=== PATIENT | male | born 1995 | race Caucasian/White ===

== ENCOUNTER 2017-07-28 16:11 | Emergency (ER) | payer BC ==
[~2017-07-28] VITALS: Ht 188 cm; Wt 127.3 kg
[~2017-07-28 16:11] MED LIST: ZYRTEC
[2017-07-28 16:27] VITALS: BP 160/87; PULSE 80; TEMP 98.1
[2017-07-28] MEDS ORDERED: FLEXERIL 1010 MG/TAB PO (18:41)
== END 2017-07-28 18:49 | disposition home or self-care (01) ==
LOC: COL.ER 16:11
DX: S20.211A Contusion of right front wall of thorax, initial encounter (principal); G43.909 Migraine, unspecified, not intractable, without status migrainosus; V80.010A Animal-rider injured by fall from or being thrown from horse in noncollision accident, initial encounter
CPT/HCPCS: J2360

== ENCOUNTER 2017-12-02 15:31 | Emergency (ER) | payer BC ==
[~2017-12-02] VITALS: Ht 190.5 cm; Wt 127.3 kg
[~2017-12-02 15:31] MED LIST changes: +FLEXERIL 1010 MG/TAB PO
[2017-12-02 15:37] VITALS: BP 128/81; TEMP 98
[2017-12-02] MEDS ORDERED: BACTRIM DS 8001 TAB PO (16:25)
[2017-12-02 16:37] VITALS: PULSE 98
== END 2017-12-02 16:38 | disposition home or self-care (01) ==
LOC: COL.ER 15:31
DX: S01.412A Laceration without foreign body of left cheek and temporomandibular area, initial encounter (principal); F17.290 Nicotine dependence, other tobacco product, uncomplicated; V80.010A Animal-rider injured by fall from or being thrown from horse in noncollision accident, initial encounter

== ENCOUNTER 2018-03-20 15:04 | Emergency (ER) | payer BC ==
[~2018-03-20] VITALS: Ht 190.5 cm; Wt 124.8 kg
[~2018-03-20 15:04] MED LIST changes: +BACTRIM DS 8001 TAB PO
[2018-03-20 15:12] VITALS: BP 112/81; TEMP 97.9
[2018-03-20] MEDS ORDERED: NORCO 325 MG-51 TAB PO (16:21)
[2018-03-20] MEDS ORDERED: FLEXERIL 1010 MG/TAB PO (16:27)
[2018-03-20 17:01] VITALS: PULSE 80
== END 2018-03-20 17:02 | disposition home or self-care (01) ==
LOC: COL.ER 15:04
DX: S39.012A Strain of muscle, fascia and tendon of lower back, initial encounter (principal); V80.010A Animal-rider injured by fall from or being thrown from horse in noncollision accident, initial encounter

== ENCOUNTER 2019-08-14 14:45 | Emergency (ER) | payer BC ==
[~2019-08-14] VITALS: Ht 190.5 cm; Wt 134.1 kg
[~2019-08-14 14:45] MED LIST changes: +NORCO 325 MG-51 TAB PO
[2019-08-14 15:07] VITALS: TEMP 98.8
[2019-08-14] MEDS ORDERED: SUDAFED30 MG PO (15:38)
[2019-08-14] MEDS ORDERED: DAY TIME 325 MG1 SGL (15:39)
[2019-08-14] MEDS ORDERED: CEPHALEXIN500 M1 PO (16:16)
[2019-08-14 16:27] VITALS: BP 143/95; PULSE 89
== END 2019-08-14 16:31 | disposition home or self-care (01) ==
LOC: COL.ER 14:45
DX: S61.431A Puncture wound without foreign body of right hand, initial encounter (principal); Z23 Encounter for immunization; W29.4XXA Contact with nail gun, initial encounter; Y92.009 Unspecified place in unspecified non-institutional (private) residence as the place of occurrence of the external cause